=== PATIENT | male | born 1940 | race Caucasian/White ===

== ENCOUNTER 2023-07-17 10:14 | Day surgery (SDC) | payer OTHER ==
[~2023-07-17] VITALS: Ht 177.8 cm; Wt 82.2 kg
[~2023-07-17 10:14] MED LIST: LR 1,000 ML IV SCH
[2023-07-17] MEDS ORDERED: Meperidine 50 MG/ML 1 ML VIAL IV PRN (11:15)
[2023-07-17] MEDS ORDERED: Ondansetron 4 MG/2 ML VIAL IV PRN ×2 (11:15→14:15)
[2023-07-17] MEDS ORDERED: HYDROmorphone 2 MG/1 ML VIAL IV PRN (11:15)
[2023-07-17] MEDS ORDERED: Morphine 4 MG/ML VIAL IV PRN ×2 (11:15→14:15)
[2023-07-17 11:19] LABS: BASO # 0.1 K/mm3 (0.0-0.2); BASO % 0.5 % (0.0-2.0); EOS # 0.4 K/mm3 (0.0-0.7); EOS % 3.4 % (0.0-4.0); GRAN # 8.3 K/mm3 (1.4-6.5); GRAN % 79.2 % (42.2-75.2); HEMATOCRIT 44.7 % (42.0-52.0); HEMOGLOBIN 14.9 g/dl (13.5-18.0); MEAN CELL VOLUME 86 fl (80.0-100.0); MEAN CORPUSCULAR HEMOGLOBIN 29 pg (27-31); MEAN CORPUSCULAR HGB CONC 33 g/dl (33.0-37.0); MEAN PLATELET VOLUME 10.9 fl (7.4-10.4); MONO # 0.7 K/mm3 (0.1-0.6); MONO % 6.5 % (1.7-9.3); PLATELET COUNT 142 K/mm3 (130-400); REDCELL DISTRIBUTION WIDTH-CV 14.1 % (11.5-14.5)
[2023-07-17 11:23] VITALS: BP 133/69; PULSE 74; TEMP 97.7
--- NOTE | 2023-07-17 11:25 | NUR ---
The patient ambulated back to [facility] independently using a steady gait with his walker and appeared to tolerate the activity well. Vital signs obtained. Consent signed. 18G IV started in left hand with one stick, LR infusing without difficulty. Blood obtained from IV start for labs as ordered. Chest x-ray and EKG were obtained also. Assessment completed. Home medications reconcilled. Call light is within reach. Family at bedside. Warm blankets provided. The patient denies any further needs at this time.
[2023-07-17] MEDS ORDERED: Indocyanine Green 12.5 MG in Water For Injection,Sterile 2.5 ML IV ONE (11:30)
[2023-07-17] MEDS ORDERED: TYLENOL 500MG500 MG PO (11:32)
[2023-07-17] MEDS ORDERED: PROAIR HFA0.09 MG/AC IH (11:33)
[2023-07-17] MEDS ORDERED: ASPIRIN 32325 MG/TAB PO (11:33)
[2023-07-17] MEDS ORDERED: ZYLOPRIM 100MG100 MG PO (11:33)
[2023-07-17] MEDS ORDERED: OPTIVE SENSITI0.4 ML OP (11:34)
[2023-07-17 11:35] LABS: BILIRUBIN,TOTAL 2.2 mg/dL (0.2-1.2); CALCIUM 9.7 mg/dL (8.4-10.2); CREATININE, serum 0.71 mg/dL (0.72-1.25); TOTAL PROTEIN 7.1 gm/dL (6.2-8.1)
[2023-07-17] MEDS ORDERED: PROSCAR 5MG5 MG PO (11:35)
[2023-07-17] MEDS ORDERED: fentaNYL 50 MCG/ML 2 ML VIAL ONE (11:35)
[2023-07-17] MEDS ORDERED: CELEBREX 200MG200 MG PO (11:35)
[2023-07-17] MEDS ORDERED: LYRICA300 MG PO (11:36)
[2023-07-17] MEDS ORDERED: Lidocaine PF 2% (20 MG/ML) 5 ML VIAL ONE (11:36)
[2023-07-17] MEDS ORDERED: LIDODERM 5% PATC1 EA TP (11:36)
[2023-07-17] MEDS ORDERED: dexAMETHasone 10 MG/ML VIAL ONE (11:36)
[2023-07-17] MEDS ORDERED: NS 10 ML IV ONE (11:36)
[2023-07-17] MEDS ORDERED: DAZIDOX10 MG PO (11:36)
[2023-07-17] MEDS ORDERED: Ondansetron 4 MG/2 ML VIAL ONE (11:36)
[2023-07-17] MEDS ORDERED: PRESERVISION A1 EAC3 PO (11:37)
[2023-07-17] MEDS ORDERED: VITAMIN D31000 I1 PO (11:37)
[2023-07-17] MEDS ORDERED: Rocuronium 50 MG/5 ML Multi-Dose VIAL ONE (11:38)
[2023-07-17] MEDS ORDERED: ePHEDrine 50 MG/ML VIAL ONE (12:38)
[2023-07-17] MEDS ORDERED: Topical Skin Adhesive 1 EACH (1 ML) TOP ONE (12:55)
[2023-07-17] MEDS ORDERED: LR 1,000 ML IV ONE (13:05)
[2023-07-17] MEDS ORDERED: ROXICODONE 55 MG/TAB PO (13:56)
[2023-07-17] MEDS ORDERED: MOTRIN 600600 MG/TAB PO (13:56)
[2023-07-17] MEDS ORDERED: Ibuprofen 600 MG TAB PO PRN (14:15)
[2023-07-17] MEDS ORDERED: oxyCODONE/Acetaminophen 5-325 MG TAB PO PRN (14:15)
[2023-07-17 14:21] VITALS: TEMP 97.2
[2023-07-17 14:35] VITALS: BP 149/67; PULSE 75
--- NOTE | 2023-07-17 14:35 | NUR ---
PATIENT RETURNS TO ROOM 1 PER CART FROM PACU ACCOMPANIED TIGIST DEWEY AND IS AWAKE AND ALERT. SURGICAL WOUNDS X5 ON ABDOMEN DRY AND WOUND EDGES WELL APPROXIAMTED. NO DRAINAGE NOTED. IVF INFUSING. TEMP 97.9. DENIES NAUSEA OR PAIN. STATES IS VERY COMFORTABLE. SIPPING ON WATER. OFFERED SNACK AND REFUSES AT THIS TIME.
[2023-07-17 14:50] VITALS: BP 130/65; PULSE 74
--- NOTE | 2023-07-17 14:50 | NUR ---
RESTING AND SIPPING ON WATER AND JUICE.
[2023-07-17 15:05] VITALS: BP 115/75; PULSE 73
--- NOTE | 2023-07-17 15:05 | NUR ---
AWAKE AND ALERT. STATES IS READY FOR DISCHARGE. CONTINUES TO DENY PAIN OR NAUSEA.
--- NOTE | 2023-07-17 15:16 | NUR ---
IV DISCONTINUED AND SITE IS FREE OF REDNESS. ASSISTED WITH DRESSING. SON IN LAW IN THE ROOM AND WILL BE PROVIDING THE TRANSPORTATION. INSTRUCTED THAT HE HAS 2 PAIN PILL PRESCRITIONS AT [facility] TO BE PICKED UP. INSTRUCTED TO FOLLOW UP LOW FAT DIET.
--- NOTE | 2023-07-17 15:30 | NUR ---
DISMISSAL INSTRUCTIONS GIVEN AND PATIENT VOICES UNDERSTANDING OF THESE. ALL QUESTIONS WERE ANSWERED. PROVIDED FOLLOW APPOINTMENT DATE AND TIME.
--- NOTE | 2023-07-17 15:34 | NUR ---
PATIENT ASSISTED INTO PRIVATE VEHICLE BY THIS RN WITH DISMISSAL INSTRUCTIONS IN HAND AND WAS TAKEN TO THE CAR BY WHEELCHAIR.
== END 2023-07-17 15:34 | disposition home or self-care (01) ==
LOC: SDCO 10:14
PROVIDERS: Surgery
DX: K80.10 Calculus of gallbladder with chronic cholecystitis without obstruction (principal); K80.64 Calculus of gallbladder and bile duct with chronic cholecystitis without obstruction; Z85.118 Personal history of other malignant neoplasm of bronchus and lung; Z90.2 Acquired absence of lung [part of]
CPT/HCPCS: J0690; J1100; J2405; J2704; J3010; J7120

== ENCOUNTER 2024-04-19 05:31 | Inpatient (IN) | payer OTHER ==
[~2024-04-19] VITALS: Ht 175.3 cm; Wt 82.1 kg
[2024-04-19] VITALS (20 sets, daily range): BP systolic 120–149; BP diastolic 60–79; PULSE 80–83; TEMP 97.6–98.1; O2SAT 92–99
[~2024-04-19 05:31] MED LIST changes: +ASPIRIN 32325 MG/TAB PO; +CELEBREX 200MG200 MG PO; +DAZIDOX10 MG PO; +LIDODERM 5% PATC1 EA TP; -LR 1,000 ML IV SCH; +LYRICA300 MG PO; +MOTRIN 600600 MG/TAB PO; +OPTIVE SENSITI0.4 ML OP; +PRESERVISION A1 EAC3 PO; +PROAIR HFA0.09 MG/AC IH; +PROSCAR 5MG5 MG PO; +ROXICODONE 55 MG/TAB PO; +TYLENOL 500MG500 MG PO; +VITAMIN D31000 I1 PO; +ZYLOPRIM 100MG100 MG PO
[2024-04-19] MEDS ORDERED: Albuterol/Ipratropium 3 MG-0.5 MG/3 ML Neb Soln IH SCH ×2 (05:45→14:00)
[2024-04-19] MEDS ORDERED: methylPREDNISolone Sod Succ 125 MG/2 ML VIAL IV ONE (05:45)
[2024-04-19] MEDS ORDERED: Magnesium Sulfate 4% 50 ML IV ONE (05:45)
[2024-04-19 06:05] LABS: BASO % 0.4 % (0.0-2.0); EOS # 0.7 K/mm3 (0.0-0.7); EOS % 7.3 % (0.0-4.0); GRAN # 6.5 K/mm3 (1.4-6.5); GRAN % 72.1 % (42.2-75.2); HEMOGLOBIN 12.5 g/dl (13.5-18.0); LYMPH # 1.2 K/mm3 (1.2-3.4); LYMPH % 12.8 % (20.0-51.0); MEAN CELL VOLUME 91 fl (80.0-100.0); MEAN CORPUSCULAR HEMOGLOBIN 29 pg (27-31); MEAN CORPUSCULAR HGB CONC 32 g/dl (33.0-37.0); MEAN PLATELET VOLUME 10.7 fl (7.4-10.4); MONO # 0.6 K/mm3 (0.1-0.6); PLATELET COUNT 150 K/mm3 (130-400); REDCELL DISTRIBUTION WIDTH-CV 14.7 % (11.5-14.5)
[2024-04-19 06:22] LABS: ALBUMIN 3.9 g/dL (3.4-4.8); BILIRUBIN,TOTAL 0.8 mg/dL (0.2-1.2); CALCIUM 8.9 mg/dL (8.4-10.2); CREATININE, serum 0.85 mg/dL (0.72-1.25); POTASSIUM 4.6 mEq/L (3.5-4.5); TOTAL PROTEIN 6.7 g/dl (6.2-8.1)
[2024-04-19 06:29] LABS: TROPONIN-I 0.056 ng/mL (0.00-0.033)
[2024-04-19] MEDS ORDERED: Doxycycline Hyclate 100 MG in NS 150 ML IV ONE (06:30)
[2024-04-19] MEDS ORDERED: Albuterol 0.083% Neb Soln 2.5 MG/3 ML UD IH ONE (06:45)
[2024-04-19] MEDS ORDERED: Ondansetron 4 MG/2 ML VIAL IV PRN (08:15)
[2024-04-19] MEDS ORDERED: methylPREDNISolone Sod Succ 125 MG/2 ML VIAL IV SCH (08:30)
[2024-04-19] MEDS ORDERED: Umeclidinium 62.5 MCG **** subs to Tiotropium 5 mcg IH SCH (09:00)
[2024-04-19] MEDS ORDERED: Pantoprazole 40 MG in NS 10 ML IV SCH (09:00)
[2024-04-19 09:11] LABS: PH 5.5 (5.0-8.5); URINE APPEARANCE CLEAR (CLEAR/HAZY); URINE BLOOD NEGATIVE (NEGATIVE); URINE COLOR YELLOW (YELLOW); URINE GLUCOSE NEGATIVE (NEGATIVE); URINE KETONE NEGATIVE (NEGATIVE); URINE NITRATE NEGATIVE (NEGATIVE); URINE PROTEIN(semi-quant) NEGATIVE (NEGATIVE); URINE UROBILINOGEN 0.2 E.U/dL (0.2-1.0)
[2024-04-19 09:46] LABS: COLLECTION METHOD CLEAN CATCH
[2024-04-19] MEDS ORDERED: Iohexol 300 - 100 ML VIAL IV ONE (10:29)
[2024-04-19] MEDS ORDERED: HYDROcodone/Acetaminophen 10-325 MG TAB PO PRN ×2 (11:00→14:30)
[2024-04-19] MEDS ORDERED: Tiotropium 2.5 MCG Respimat MDI IH SCH (11:00)
[2024-04-19] MEDS ORDERED: Pregabalin 50 MG CAP PO SCH ×2 (11:08→17:00)
[2024-04-19] MEDS ORDERED: ALBUTEROL0.83 MG/ML IH (11:09)
[2024-04-19] MEDS ORDERED: PLAVIX 75MG TAB75 MG PO (11:10)
[2024-04-19] MEDS ORDERED: ASPIRIN E.C. 8181 MG PO (11:10)
[2024-04-19] MEDS ORDERED: LIPITOR 80MG80 MG PO (11:10)
[2024-04-19] MEDS ORDERED: MUCUS RELIEF400 M1 PO (11:11)
[2024-04-19] MEDS ORDERED: NORCO 325 MG-101 TAB PO (11:11)
[2024-04-19] MEDS ORDERED: ENSURE PLUS 23237 ML PO (11:12)
[2024-04-19] MEDS ORDERED: SPIRIVA RE2.5 MCG/Ac IH (11:13)
[2024-04-19] MEDS ORDERED: BACTRIM DS 8001 TAB PO (11:14)
[2024-04-19] MEDS ORDERED: LYRICA 100MG C100 M1 PO (11:14)
[2024-04-19] MEDS ORDERED: FLOMAX 0.40.4 MG/CAP PO (11:14)
[2024-04-19] MEDS ORDERED: Doxycycline Monohydrate 100 MG CAP PO SCH (14:18)
[2024-04-19 14:36] LABS: ARTERIAL BLD GAS O2 SATURATION 92.1 % (92-100); ARTERIAL BLD GAS TCO2 CT 23.4; ARTERIAL BLOOD GAS BASE EXCESS -1.5 (-2-2); ARTERIAL BLOOD GAS HCO3 22.3 meq/L (22-26); ARTERIAL BLOOD GAS PO2 64.4 mmHg (80-100); ARTERIAL BLOOD GAS pH 7.42 (7.35-7.45)
--- NOTE | 2024-04-19 16:01 | NUR ---
millinery worker met with patient and his daughter, Marjorie, P# [phone], to discuss discharge planning. Patient lives in [place] currently by himself but the daughter notified Dr. Panda that she and her were going to be moving in with him soon. Bassam (Marjorie's ) P# [phone]. PCP is Socorro Hung through the [place] home [facility] program, [place] [facility] [place]. No issues affording medications. Insurance is [employer] and Medicare A and B. DPOA-HC is Marjorie but they are not certain if they have a copy of it. SW offered to assist with completing a form, Marjorie stated she could assist patient with this. Patient stated he has been using oxygen that was leftover from years ago but does not normally use oxygen. Patient uses a walker and a power chair. Patient reports to be independent with ADLS and is able to transport himself to and from appointments. SW explained PT and OT will be evaluating to see if he needs any home health or rehab upon discharge. Patient's daughter did not feel patient would need these services. SW explained she would follow up after therapy assesses in case he would benefit from those services. Patient and daughter understood. No further questions or concerns at this time. Discharge plan: Home pending medical status and PT/OT at[facility]
--- NOTE | 2024-04-19 17:53 | NUR ---
DRESSING CHANGE TO L FOOT ULCER DONE. WOUND IS STAGE 3, WOUND BED IS PINK, SURROUNDING TISSUE WHITE, WOUND MEASURES 2 X 1.5 CM. OLD DRESSING NOTED TO BE SATURATED W/ PURULENT DRAINAGE. WOUND CLEANSED W/ SALINE, ALLOWED TO AIR DRY, TELFA PAD AND MEPILEX APPLIED. PT STATES HE SEES A PUBLIC RELATIONS CONSULTANT WEEKLY FOR WOUND CARE AND CHANGES THE DRESSING HIMSELF EVERY 2 DAYS AT HOME. WOUND PICTURES TAKEN FOR CHART.
[2024-04-19] MEDS ORDERED: Formoterol Neb Soln 20 MCG/2 ML UD IH SCH (19:00)
[2024-04-19] MEDS ORDERED: Budesonide Neb Susp 0.5 MG/2 ML AMP IH SCH (19:00)
[2024-04-19] MEDS ORDERED: Allopurinol 100 MG TAB PO SCH (21:00)
[2024-04-19] MEDS ORDERED: Atorvastatin 80 MG TAB PO SCH (21:00)
--- NOTE | 2024-04-19 21:50 | NUR ---
PT LAYING IN BED UPON ENTERING. INT TO RFA PATENT. PT REPORTS LEFT FOOT PAIN, PRN GIVEN. PT ON 1L NASAL CANNULA. PT REPORTS SHORTNESS OF BREATH, RESPIRATORY NOTIFIED FOR BREATHING TREATMENT. PT UPDATED ON NPO AT MIDNIGHT FOR PROCEDURE ON 04/20, PT VERBALIZED UNDERSTANDING. ULCER NOTED TO MEDIAL LEFT FOOT, SCANT DRAINAGE NOTED AND AQUACELL IN PLACE. PT DENIES NEEDS AT THIS TIME. BED IN LOWEST POSITION, CALL LIGHT IN REACH, BED ALARM ON
[2024-04-20] VITALS (15 sets, daily range): BP systolic 101–144; BP diastolic 47–78; PULSE 59–84; TEMP 97.4–98.5; O2SAT 94–98
--- NOTE | 2024-04-20 03:02 | NUR ---
PT STANDING ON SIDE OF BED USING URINAL WITH 1 ASSIST. PT BACK TO BED AND REPORTS INCREASED SHORTNESS OF BREATH. RESPIRATORY AT BEDSIDE AND BREATHING TREATMENT. PT STATES HE DOESNT FEEL LIKE ANYTHING IS WORKING AND PLACED ON BIPAP BY RT. PT TOLERATING WELL AND DENIES FURTHER NEEDS AT THIS TIME
[2024-04-20 06:08] LABS: BASO % 0.2 % (0.0-2.0); EOS # 0.1 K/mm3 (0.0-0.7); GRAN # 7.3 K/mm3 (1.4-6.5); GRAN % 81.6 % (42.2-75.2); HEMOGLOBIN 11.3 g/dl (13.5-18.0); LYMPH # 0.8 K/mm3 (1.2-3.4); MEAN CELL VOLUME 89 fl (80.0-100.0); MEAN CORPUSCULAR HEMOGLOBIN 30 pg (27-31); MEAN CORPUSCULAR HGB CONC 33 g/dl (33.0-37.0); MEAN PLATELET VOLUME 10.7 fl (7.4-10.4); MONO # 0.7 K/mm3 (0.1-0.6); MONO % 7.8 % (1.7-9.3); PLATELET COUNT 135 K/mm3 (130-400); REDCELL DISTRIBUTION WIDTH-CV 15.1 % (11.5-14.5)
[2024-04-20 06:18] LABS: HEMATOCRIT 33.8 % (42.0-52.0)
[2024-04-20 06:25] LABS: CALCIUM 9.2 mg/dL (8.4-10.2); CREATININE, serum 0.76 mg/dL (0.72-1.25); POTASSIUM 4.4 mEq/L (3.5-4.5)
--- NOTE | 2024-04-20 07:40 | NUR ---
Patient is now back in bed, took three nurses lifting him with gait belt to get him off the toilet. Had a good size BM this am. Will have heart cath sometime today. Having SOB/SOA, back on 3 liters of oxygen.
[2024-04-20] MEDS ORDERED: Tiotropium 2.5 MCG Respimat MDI IH SCH (09:00)
[2024-04-20] MEDS ORDERED: Influenza Virus Vaccine, Hi-Dose Triv '24-25 (65 YR+) 0.5 ML SYRINGE IM SCH (09:00)
[2024-04-20] MEDS ORDERED: dexAMETHasone 10 MG/ML VIAL IV SCH (09:00)
[2024-04-20] MEDS ORDERED: Clopidogrel 75 MG TAB PO SCH ×2 (09:00→11:51)
--- NOTE | 2024-04-20 10:20 | NUR ---
Patient left the floor with Downstairs Maid nurse for left heart cath and possible revascularization
--- NOTE | 2024-04-20 10:37 | NUR ---
Initial visit; Patient thanked [employer] for looking in on him and offering Spiritual Care for everyone. Patient was receptive to [employer] offering prayer for prayer for a successful 'Procedure' coming up. [employer] will keep Genaro in her prayers also.
[2024-04-20] MEDS ORDERED: Nitroglycerin 100 MCG/ML (Cath Lab) 10 ML VIAL IA SCH (10:47)
[2024-04-20] MEDS ORDERED: Heparin 1,000 UNITS/ML 10 ML Multi-Dose VIAL IA SCH (10:48)
[2024-04-20] MEDS ORDERED: Bivalirudin 250 MG in NS 50 ML IV SCH ×2 (11:06→12:01)
[2024-04-20] MEDS ORDERED: Nitroglycerin 100 MCG/ML (Cath Lab) 10 ML VIAL INCOR SCH (11:07)
[2024-04-20] MEDS ORDERED: Midazolam 2 MG/2 ML VIAL IV SCH (11:47)
[2024-04-20] MEDS ORDERED: fentaNYL 50 MCG/ML 2 ML VIAL IV SCH (11:48)
[2024-04-20] MEDS ORDERED: Iohexol 350 - 100 ML VIAL INCOR ONE (11:50)
--- NOTE | 2024-04-20 12:21 | NUR ---
Genaro is transferred back to ICU rm [address] Abreu. TR band to rt wrist looks good, cms intact distal. BS report and handoff of care to Kate DEWEY.
--- NOTE | 2024-04-20 20:00 | NUR ---
PM ASSESSMENT COMPLETE. PT ASSISTED TO DANGLE AT SIDE OF BED TO USE URINAL. PT REPORTS PAIN 3/10, WHICH IS MOSTLY BASELINE FOR PT PER SELF REPORT, PAIN PILL GIVEN RECENTLY PER DAYSHIFT RN. TR BAND TO R RADIAL SITE REMOVED AT THIS TIME, GAUZE AND TAPE APPLIED. NO BLEEDING NOTED, PULSES 2+. PT CURRENTLY ON 1 L O2 VIA NC, NO LABORED BREATHING NOTED. PT DOES HAVE PRODUCTIVE COUGH, LIGHT JENKINS SPUTUM. DRSG CHANGED TO L MEDIAL FOOT WOUND. WOUND BED PINK, NO DRAINAGE. PULSES 2+ BLE. PT REPORTS NO NEEDS AT THIS TIME.
[2024-04-21] VITALS: BP 108/50; PULSE 65; TEMP 98
[2024-04-21 04:00] VITALS: BP 123/56; PULSE 60; TEMP 98
[2024-04-21 04:54] LABS: BASO % 0.1 % (0.0-2.0); EOS % 0.1 % (0.0-4.0); GRAN # 8.8 K/mm3 (1.4-6.5); GRAN % 86.3 % (42.2-75.2); HEMOGLOBIN 11.6 g/dl (13.5-18.0); LYMPH # 0.8 K/mm3 (1.2-3.4); LYMPH % 7.5 % (20.0-51.0); MEAN CELL VOLUME 87 fl (80.0-100.0); MEAN CORPUSCULAR HEMOGLOBIN 30 pg (27-31); MEAN CORPUSCULAR HGB CONC 34 g/dl (33.0-37.0); MEAN PLATELET VOLUME 11.2 fl (7.4-10.4); MONO # 0.6 K/mm3 (0.1-0.6); MONO % 5.6 % (1.7-9.3); PLATELET COUNT 142 K/mm3 (130-400); REDCELL DISTRIBUTION WIDTH-CV 15.1 % (11.5-14.5)
[2024-04-21 05:09] LABS: CALCIUM 9.2 mg/dL (8.4-10.2); CREATININE, serum 0.78 mg/dL (0.72-1.25); POTASSIUM 3.9 mEq/L (3.5-4.5)
--- NOTE | 2024-04-21 07:00 | NUR ---
Report received from MACO Montague. Reviewed overnight events and labs. Pt is resting with eyes closed in bed. Vitals are stable. Call light within reach. Will continue with POC.
[2024-04-21 08:00] VITALS: BP 133/67; PULSE 61; TEMP 97.5
[2024-04-21] MEDS ORDERED: TOPROL XL 25MG25 MG PO (09:10)
[2024-04-21] MEDS ORDERED: NITROSTAT0.4 MG/TAB SL (09:27)
[2024-04-21] MEDS ORDERED: MONODOX100 PO (09:33)
[2024-04-21] MEDS ORDERED: PREDNISONE20 MG PO (09:34)
--- NOTE | 2024-04-21 10:21 | NUR ---
retail salesworker attended interdisciplinary clinical rounding with Dr. Olvera. Patient is medically stable for discharge. SW notes PT and OT have not been able to work with patient due to medical status yesterday. SW spoke with patient's nurse regarding patient's mobility. Patient's nurse reports he has been able to get up and around. SW asked if patient would benefit from home health and patient's nurse stated yes. SW met with patient to discuss home health services. [facility] stated [facility] but does not currently have PT and OT in the home. SW explained his nurse informed the social security benefits interviewer that he could benefit from home health. SW discussed what home health services consist of and asked for his thoughts. Patient stated he lives with his daughter and her and did not feel like he would need home health at this time with the support they provide. SW provided the Medicare.gov list of home health services and explained to patient if he gets home and wants home health his PCP/[facility] could get that set up for him. Patient understood. TICO asked about transportation home. Patient has called his daughter to notify her of his discharge today but his neighbor will be transporting home and still needs to call him but wanted to wait until his orders were ready. Discharge plan: Home
--- NOTE | 2024-04-21 11:40 | NUR ---
Patient used the toilet in the room before being discharged, and when this nurse went to get him off the toilet, he was not able to help himself stand and this nurse could not lift him alone. MACO Ellis came into the room to help; the both of us together could still not assist patient to standing and called GLENN Mares to come to the unit and assist. Patient assisted into wheelchair, nearly missing the chair but assisted into position by Vishnu. Patient then taken out to vehicle by MACO Ellis and this nurse. All discharge information was explained to patient and all questions were answered.
--- NOTE | 2024-04-21 12:06 | NUR ---
RE: Referral for Outpatient Cardiac Rehab. Staff attempted to see patient, but had already been discharge/out of room. Staff will follow up via phone call next . Staff will review CVD risk factors and Cardiac Rehab program.
== END 2024-04-21 11:28 | disposition home or self-care (01) | DRG 321 ==
LOC: COL.ER 05:31 → ICU 08:11
PROVIDERS: Emergency Medicine; ADMIT Internal Medicine
PROC: 027035Z Dilation of Coronary Artery, One Artery with Two Drug-eluting Intraluminal Devices, Percutaneous Approach (ICD-10-PCS; principal; 2024-04-20)
PROC: 4A023N7 Measurement of Cardiac Sampling and Pressure, Left Heart, Percutaneous Approach (ICD-10-PCS; 2024-04-20)
PROC: B2111ZZ Fluoroscopy of Multiple Coronary Arteries using Low Osmolar Contrast (ICD-10-PCS; 2024-04-20)
PROC: 5A09357 Assistance with Respiratory Ventilation, Less than 24 Consecutive Hours, Continuous Positive Airway Pressure (ICD-10-PCS; 2024-04-20)
DX: I21.4 Non-ST elevation (NSTEMI) myocardial infarction (principal); J96.21 Acute and chronic respiratory failure with hypoxia; J44.1 Chronic obstructive pulmonary disease with (acute) exacerbation; I73.9 Peripheral vascular disease, unspecified; Z85.118 Personal history of other malignant neoplasm of bronchus and lung; E78.5 Hyperlipidemia, unspecified; L97.509 Non-pressure chronic ulcer of other part of unspecified foot with unspecified severity; M60.9 Myositis, unspecified; Z85.46 Personal history of malignant neoplasm of prostate; E79.0 Hyperuricemia without signs of inflammatory arthritis and tophaceous disease; K21.9 Gastro-esophageal reflux disease without esophagitis
CPT/HCPCS: A9270; C1725; C1769; C1874; C1887; C9600; J0583; J1100; J1644; J1650; J2250; J2470; J2543; J2919; J3010; J3475; Q9967